=== PATIENT | male | born 1995 | race Caucasian/White ===

== ENCOUNTER 2023-05-03 17:19 | Emergency (ER) | payer BC, SELFPAY ==
--- OUTSIDE RECORDS SUMMARY | 2023-05-03 17:23 | XMS REPORT | Continuity of Care Document ---
:1995 Author Organization [facility] t Address [address] [place] [address] [place] [id number] Care Team Providers Name Role Phone Pcp, Patient Does Not Have A Primary Care Physician +[id number] Ramya Rivera MD Attending Clinician Unknown, Attending Attending Clinician Unavailable RAMYA RIVERA Attending Clinician Unavailable Greg Og Attending Clinician Unavailable Doctor Unassigned, [place] Attending Clinician Unavailable Payers Payer Name Policy Type Policy Number Effective Date Expiration Date S ource Problems Condition Condition Condition Status Onset Resolution Last Treating Co mments Source Name Details Category Date Date Treatment Clinician Date No known No known Disease Unive rs active active ity of problems problems [facility] Allergies, Adverse Reactions, Alerts Allergy Allergy Status Severity Reaction(s) Onset Inactive Treating Comm ents Source Name Type Date Date Clinician PENICILL Drug Active Rash 2021-10 Univers INS Class 1-16 ity of 00:00: [place] 00 [facility] Penicill Propensi Active Rash 2021-10 Univer s ins ty to 16 ity of adverse 00:00: [place] reaction 00 [facility] No Known DA Active U SJm Drug -17 Allergie 00:00: s 00 NO KNOWN Drug Active Univers ALLERGIE Class ity of S [facility] Social History Social Habit Start Date Stop Date Quantity Comments Source History of Cigarette Smoker Universi ty of tobacco use [facility] Exposure to 2022-08-12 2022-08-22 Not sure University of SARS-CoV-2 00:00:00 12:32:00 [facility] (event) Branch Tobacco use and 2022-08-22 2022-08-22 Smokeless tobacco Un iversity of exposure 00:00:00 00:00:00 non-user [facility] Sex Assigned At [birth year] Universit y of 00:00:00 00:00:00 [facility] Smoking Status Start Date Stop Date Source Tobacco smoking consumption Univ ersity [facility] unknown Branch Smokes tobacco daily 2022-08-22 00:00:00 Univers ity [facility] Medications Ordered Filled Start Stop Current Ordering Indication Dosage Frequency Signature Comments Components Source Medication Medication Date Date Medication? Clinician (SIG) Name Name No known 2021-10 No No known Unive rs medications 1-16 medication it y of 13:08: s [address] trazodone 2021-10 Yes Take by Unive rs HCl 1-16 mouth. ity of (TRAZODONE 12:53: [place] ORAL) [address] [place] [address] trazodone 2021-10 Yes Take by Unive rs HCl 1-16 mouth. ity of (TRAZODONE 12:53: [place] ORAL) [address] [place] [address] trazodone 2021-10 Yes Take by Unive rs HCl 1-16 mouth. ity of (TRAZODONE 12:53: [place] ORAL) [address] [place] [address] benzonatate 2021-10 Yes [id number] 200mg Take 2 Univers 100 mg 1-16 capsules ity of capsule 00:00: by mouth [place] 00 every 8 Medical (eight) Branch hours as needed for Cough. ondansetron 2021-10 Yes [id number] 4mg Take 1 U nivers 4 mg 1-16 tablet by ity of disintegrat 00:00: mouth [place] ing tablet 00 every 8 Medica l (eight) Branch hours as needed for Nausea and Vomiting (N/V). bromphenira 2021-10 Yes [id number] 10mL Take 10 mL Univers mine-pseudo 1-16 by mouth 4 it y of ephedrine-D 00:00: ([place] (BROMFED 00 times Medical DM) 2-30-10 daily as Bran ch mg/5 mL needed for syrup Congestion /Allergies . benzonatate 2021-10 Yes [id number] 200mg Take 2 Univers 100 mg 1-16 capsules ity of capsule 00:00: by mouth [place] 00 every 8 Medical (eight) Branch hours as needed for Cough. ondansetron 2021-10 Yes [id number] 4mg Take 1 U nivers 4 mg 1-16 tablet by ity of disintegrat 00:00: mouth [place] ing tablet 00 every 8 Medica l (eight) Branch hours as needed for Nausea and Vomiting (N/V). bromphenira 2021-10 Yes [id number] 10mL Take 10 mL Univers mine-pseudo 1-16 by mouth 4 it y of ephedrine-D 00:00: ([place] (BROMFED 00 times Medical DM) 2-30-10 daily as Bran ch mg/5 mL needed for syrup Congestion /Allergies . benzonatate 2021-10 Yes [id number] 200mg Take 2 Univers 100 mg 1-16 capsules ity of capsule 00:00: by mouth [place] 00 every 8 Medical (eight) Branch hours as needed for Cough. ondansetron 2021-10 Yes [id number] 4mg Take 1 U nivers 4 mg 1-16 tablet by ity of disintegrat 00:00: mouth [place] ing tablet 00 every 8 Medica l (eight) Branch hours as needed for Nausea and Vomiting (N/V). bromphenira 2021-10 Yes [id number] 10mL Take 10 mL Univers mine-pseudo 1-16 by mouth 4 it y of ephedrine-D 00:00: (four[place] (BROMFED 00 times Medical DM) 2-30-10 daily as Bran ch mg/5 mL needed for syrup Congestion /Allergies . oseltamivir 2021-10- No [id number] 75mg Take 1 Univers 75 mg 1-16 11-22 capsule by ity of capsule 00:00: 05:59 mouth in [place] 00 :00 the Medical morning Branch and 1 capsule in the evening. Do all this for 5 days. oseltamivir 2021-10- No [id number] 75mg Take 1 Univers 75 mg 1-16 11-22 capsule by ity of capsule 00:00: 05:59 mouth in [place] 00 :00 the Medical morning Branch and 1 capsule in the evening. Do all this for 5 days. oseltamivir 2021-10- No [id number] 75mg Take 1 Univers 75 mg 10-22 capsule by ity of capsule 00:00: 05:59 mouth in [place] 00 :00 the [facility] Branch and 1 capsule in the evening. Do all this for 5 days. Vital Signs Vital Name Observation Time Observation Value Comments Source Systolic blood 2022-08-22 18:56:00 144 [facility]Hg[facility] Diastolic blood 2022-08-22 18:56:00 85 mm[Hg] [facility] Heart rate 2022-08-22 18:54:00 108 /min [facility] Body temperature 2022-08-22 18:54:00 37.78 Stacie [facility] Respiratory rate 2022-08-22 18:54:00 18 /min [facility] Body height 2022-08-22 18:54:00 180.3 cm [facility] Body weight 2022-08-22 18:54:00 86.274 kg [facility] BMI 2022-08-22 18:54:00 26.53 kg/m2 [facility] Oxygen saturation in 2022-08-22 18:54:00 97 /min [facility] Arterial blood by [facility] Pulse oximetry [place] Procedures Procedure Date / Time Performing Clinician Source Performed POCT MOLECULAR FLU 2022-08-22 18:59:00 Unknown, Attending [facility] POCT MOLECULAR STREP 2022-08-22 18:56:00 Unknown, Attending [facility] PATIENT FINANCIAL Doctor Unassigned, [facility] RESPONSIBILITY - ALL [place] [facility] FORMS Encounters Start End Encounter Admission Attending Care Care Encounter Source Date/Time Date/Time Type Type Clinicians Facility Department ID 2022-08-22 2022-08-22 Urgent Ramya Rivera [facility] [id number] Univers 12:20:00 13:09:18 Care Unknown, Attending [facility] [id number] itkourtney [facility] [id number] Fabricio as KYLE?BLEA [id number] [facility] [address] MEDICAL OFFICE BUILDING 2022-08-22 2022-08-22 Outpatient R BARRETT [facility] [id number] Univers 12:20:00 13:09:18 RAMYA ity of [facility] 2022-08-22 2022-08-22 [facility] [id number] Univers 00:00:00 00:00:00 (Out) Ramya HEALTH [id number] it y of [facility] [id number] Fabricio as KYLE?BLEA [id number] [address] OFFICE [facility] 2022-08-22 2022-08-22 [facility]phone [facility] [id number] Univers 00:00:00 00:00:00 Ramya HEALTH [id number] it y of [place] [id number] Fabricio as KYLE?BLEA [id number] [address] 2022-03-23 2022-03-23 Emergency Emergency Earle, Greg [facility] JM [id number] [facility] 21:20:00 21:20:00 35 2022-03-23 2022-03-23 Emergency [facility] [id number] [facility] 21:20:00 21:20:00 35 Orders Doctor TONE [id number] Univers 00:00:00 00:00:00 Only Unassigned, JOANIE [id number] ity of [place] [facility] [id number] Fabricio as [id number] [address] Results Test Description Test Time Test Comments Results Result Comments Source POCT MOLECULAR STREP 2022-08-22 19:04:36 Test Item Value Reference Range Interpretation Comme nts POCT Molecular Strep (test code = 55886-5) Negative Negative Lab Interpretation (test code = 12034-4) [facility] [id number] 19:03:49 Test Item Value Reference Range Interpretation Comments POCT Molecular FluA (test code = Positive Negative A 54661-3) Lab Interpretation (test code = Abnormal 50016-0) [facility] [id number] 23:00:00 Test Item Value Reference Range Interpretation Comments Color,Urine (test code = UCOL) Yellow Yellow Clarity,Urine (test code = Clear Clear UCLAR) Ph, Urine (test code = UPH) 6.0 5.0-9.0 N Specific [place],Urine (test 1.015 1.005-1.030 N code = USG) Blood,Urine (test code = UBLD) Trace mg/dL Negative A Protein,Urine (test code = Negative mg/dL Negative UPRO) Glucose,Urine (UA) (test code Negative mg/dL Negative = UGLU) Ketones,Urine (test code = Trace mg/dL Negative A UKET) Nitrate,Urine (test code = Negative Negative UNIT) Bilirubin,Urine (test code = Negative mg/dL Negative UBIL) Urobilinogen,Urine (test code 1.0 E.U./dL Normal = UURO) Leukocyte Esterase,Urine (test Negative mg/dL Negative code = ULEU) Complete Blood Count Auto [id number] 23:00:00 Test Item Value Reference Range Interpretation Comments White Blood Count (test code = 10.8 x10 3/uL 4.4-10.5 H WBCT) Red Blood Count (test code = 5.31 x10 6/uL 4.10-5.70 N RBC) Hemoglobin (test code = HGBT) 17.0 g/dL 13.4-17.4 N Hematocrit (test code = HCTT) 50.8 % 38.7-52.0 N Mean Corpuscular Volume (test 95.70 fL 80.00-100.00 N code = MCV) Mean Corpuscular Hemoglobin 32.0 pg 27.0-32.5 N (test code = MCH) Mean Corpuscular HGB Conc 33.50 g/dL 32.00-37.50 N (test code = MCHC) RDW Coefficient of Variation 12.7 % 11.5-14.5 N (test code = RDWCV) Platelet Count (test code = 330.0 x10 3/uL 140.0-440.0 N PLTT) Mean Platelet Volume (test 9.7 fL code = MPV) Immature Granulocytes % (Auto) 0.3 % 0.0-5.0 N (test code = IMMGRAN%) Neutrophils % (Auto) (test 58.0 % 36.0-70.0 N code = NE%) Lymphocytes % (Auto) (test 34.3 % 12.0-44.0 N code = LY%) Monocytes % (Auto) (test code 5.3 % 0.0-11.0 N = MO%) Eosinophils % (Auto) (test 1.5 % 0.0-7.0 N code = EO%) Basophils % (Auto) (test code 0.6 % 0.0-2.0 N = BA%) Immature Granulocytes # (Auto) 0.03 x10 3/uL (test code = IMMGRAN#) Neutrophils # (Auto) (test 6.3 x10 3/uL 1.6-7.4 N code = NE#) Lymphocytes # (Auto) (test 3.72 x10 3/uL 0.50-4.60 N code = LY#) Monocytes # (Auto) (test code 0.57 x10 3/uL 0.00-1.20 N = MO#) Eosinophils # (Auto) (test 0.16 x10 3/uL 0.00-0.74 N code = EO#) Basophils # (Auto) (test code 0.06 x10 3/uL 0.00-0.21 N = BA#) nRBC Abs (test code = NRBCA) 0 nRBC Pct (test code = NRBCP) 0 % Comprehensive Metabolic [id number] 23:00:00 Test Item Value Reference Range Interpretation Comments SODIUM (test code = NA) 141.0 mmol/L 136.0-145.0 N Potassium,K (test code = K) 4.4 mmol/L 3.0-5.1 N Chloride (test code = CL) 103 mmol/L 98-107 N Carbon Dioxide (test code = 29 mmol/L 20-31 N CO2) Anion Gap (test code = GAP) 9 mmol/L 5-15 N Blood Urea Nitrogen (test code 8 mg/dL 9-23 L = BUN) Creatinine (test code = CREATT) 1.13 mg/dL 0.55-1.02 H Creatinine Clr Calc Pharmacy 107.78 mL/min (test code = CRCLPHA) Estimated GFR ( Maryanne > 60 mL/min/1.73m2 (test code = EGFRAA) Estimated GFR (Non Afr Maryanne > 60 mL/min/1.73m2 (test code = EGFRNAA) BUN/Creatinine Ratio (test code 7 ratio 10-20 L = BCRATIO) Glucose (test code = GLU) 86 mg/dL 74-106 N Osmolality,Calculated (test 288.8 code = OSMOC) Calcium (test code = CA) 9.1 mg/dL 8.3-10.6 N Bilirubin,Total (test code = 0.3 mg/dL 0.2-1.1 N BILIT) Aspartate Amino Transferase 30 U/L 0-34 N (test code = AST) Alanine Aminotransferase (test 25 U/L 10-49 N code = ALT) Total Protein (test code = TP) 7.6 g/dL 5.7-8.2 N Albumin Level (test code = ALB) 4.9 g/dL 3.2-4.8 H Globulin (test code = GLOB) 2.7 mg/dL 2.3-3.5 N Albumin/Globulin Ratio (test 1.8 ratio 0.8-2.0 N code = AGRATIO) Alkaline Phosphatase (test code 62 U/L 46-116 N = ALP) Ethanol [id number] 23:00:00 Test Item Value Reference Range Interpretation Comments Ethanol (test code 145 mg/dL The pharm acological = ETOH) response to blo od alcohol levels mayvary from individual to i ndividual. The fatal gilbert ntrationhas been reported t o be >400mg/dL.
[2023-05-03 18:16] LABS: Specific Gravity 1.006 (1.005-1.030); Urine Bilirubin NEGATIVE (Negative); Urine Blood Negative (Negative); Urine Clarity Clear (Clear); Urine Color Colorless (Yellow); Urine Glucose NEGATIVE (Negative); Urine Protein NEGATIVE (Negative); Urine Urobilinogen Normal (Normal)
[2023-05-03 18:18] LABS: Absolute Lymphocytes (CBC) 3.1 K/uL (0.7-4.9); Hematocrit 47.4 % (39.6-49.0); Lymphocytes % 35.9 % (15.3-44.8); MCV 91.8 fL (80-100); MPV 8.2 fL (7.6-11.3); RBC Red Blood Cell Count 5.17 M/uL (4.33-5.43)
[2023-05-03 18:26] LABS: Barbiturates NEGATIVE (NEGATIVE); Benzodiazepines NEGATIVE (NEGATIVE); Cocaine NEGATIVE (NEGATIVE); METHAMPHETAM NEGATIVE (NEGATIVE); Methadone NEGATIVE (NEGATIVE); Opiates NEGATIVE (NEGATIVE); Phencyclidine NEGATIVE (NEGATIVE); THC Cannibis NEGATIVE (NEGATIVE)
[2023-05-03 18:35] LABS: ALT/SGPT 30 U/L (16-61); AST/SGOT 21 U/L (15-37); Alkaline Phosphatase 56 U/L (45-117); BUN Blood Urea Nitrogen 8 mg/dL (7-18); Bicarbonate 26 mEq/L (21-32); Bilirubin Direct < 0.1 mg/dL (0-0.2); Bilirubin Indirect, Calculated ND mg/dL (0.2-0.8); Bilirubin Total 0.3 mg/dL (0.2-1.0); Glomerular Filtration Rate 97 ml/min (=/>90); Glucose Level 99 mg/dL (74-106); Potassium 4.1 mEq/L (3.5-5.1); Protein, Total 8.2 g/dL (6.4-8.2); Sodium Level 142 mEq/L (136-145)
[2023-05-03] MEDS ORDERED: TDAP (DIPHTH,PERTUSS(ACELL),TET VAC) 0.5 ML VIAL IMVAC ONE (19:26)
[2023-05-03] MEDS ORDERED: NA CHLORIDE 0.9% 1,000 ML ONE (19:26)
--- NOTE | 2023-05-03 20:04 | EDPHYS ---
Physician Documentation [facility] Name: Rolan Jeter Jr Age: 28 yrs Sex: Male : 1995 Arrival Date: 05/03/2023 Time: 17:19 Bed 17 Private MD: ED Physician Hugo Ceballos HPI: 05/03 18:00 This 28 yrs old Male presents to ER via Law Enforcement with complaints of Cutting of cp Wrist, Alcohol Intoxication. 18:00 Patient is a 28-year-old male who is brought in accompanied by law enforcement under cp senior living with concern for suicidal ideations. Patient denies any current suicidal ideations but admits to consuming alcohol today and cutting his wrists in an attempt to just feel pain. Patient admits she has cut in the past and that this is in an effort to feel pain and not in an attempt of suicide. Patient reports he lives at home with his mother for the past 2 years since being [facility] and is unemployed but denies any thoughts of suicide. Historical: - Allergies: 17:38 PENICILLINS; eh3 - Home Meds: 17:38 Trazodone Oral [Active]; Seroquel Oral [Active]; Lexapro Oral [Active]; eh3 - PMHx: 17:38 Depressive disorder; eh3 - Immunization history:: Adult Immunizations unknown. - Social history:: Smoking status: unknown Patient uses alcohol. ROS: 18:05 Eyes: Negative for injury, pain, redness, and discharge. cp 18:05 Constitutional: Negative for body aches, chills, fever, poor PO intake. 18:05 Cardiovascular: Negative for chest pain, palpitations. 18:05 Respiratory: Negative for cough, shortness of breath, wheezing. 18:05 Abdomen/GI: Negative for abdominal pain, nausea, vomiting, and diarrhea. 18:05 Skin: Positive for laceration(s), of the volar side of right forearm and volar side of left forearm. 18:05 Neuro: Negative for altered mental status, dizziness, headache, numbness. 18:05 Psych: Negative for auditory hallucinations, visual hallucinations, homicidal ideation, suicide gesture, suicidal ideation. 18:05 All other systems are negative. Exam: 18:10 Constitutional: The patient appears in no acute distress, alert, awake, non-toxic, well cp developed, well nourished, smells of alcohol. 18:10 Head/Face: Normocephalic, atraumatic. cp 18:10 Eyes: Periorbital structures: appear normal, Conjunctiva: normal, no exudate, no injection, Sclera: no appreciated abnormality, Lids and lashes: appear normal, bilaterally. 18:10 ENT: External ear(s): are unremarkable, Nose: is normal, Mouth: Lips: moist, Oral mucosa: moist, Posterior pharynx: is normal, airway is patent, no erythema, no exudate. 18:10 Chest/axilla: Inspection: normal. 18:10 Cardiovascular: Rate: normal, Rhythm: regular. 18:10 Respiratory: the patient does not display signs of respiratory distress, Respirations: normal, no use of accessory muscles, no retractions, labored breathing, is not present, Breath sounds: are clear throughout, no decreased breath sounds, no stridor, no wheezing. 18:10 Abdomen/GI: Inspection: abdomen appears normal, Palpation: abdomen is soft and non-tender, in all quadrants. 18:10 Back: pain, is absent, ROM is normal. 18:10 Skin: injury, laceration(s), Multiple, superficial noted to palmar side of left and right forearms. Minimal bleeding noted. 18:10 Neuro: Orientation: to person, place \T\ time. Mentation: is normal, Motor: moves all fours, strength is normal. 05/04 19:00 ECG was reviewed by the Attending Physician. cp Vital Signs: 05/03 17:36 BP 153 / 77; Pulse 76; Resp 20; Temp 98.4(O); Pulse Ox 99% on R/A; eh3 05/04 01:25 BP 140 / 70; Pulse 65; Resp 16 S; Pulse Ox 96% on R/A; ha1 08:00 BP 135 / 88; Pulse 75; Resp 15; Temp 97.4; Pulse Ox 96% on R/A; Pain 0/10; ll1 11:57 BP 129 / 76; Pulse 69; Resp 18; Pulse Ox 100% on R/A; Pain 0/10; ld1 08:00 Pain Scale: Adult ll1 11:57 Pain Scale: Adult ld1 MDM: 05/03 17:29 Patient medically screened. [facility] 19:35 Data reviewed: vital signs, nurses notes, lab test result(s), EKG. 19:35 ED course: Plan: We will continue to monitor patient in the emergency department and cp allowed to sober up. We will redraw alcohol level and once under 100, consult Subha Ledesma for evaluation and probable discharge from the ED. At this time patient continues to deny any suicidal ideations but remains under senior living. 05/04 03:00 Transition of care: After a detail discussion of the patient's case, care is cp transferred to Hadley Gardiner MD. 07:27 Transition of care: Care assumed from Hadley Gardiner MD. ms3 11:08 Differential diagnosis: depression, psychosis secondary to non-compliance, Alcohol ms3 intoxication. 11:08 ED course: Patient seen by Subha Ledesma and discharge plan created. Patient denies ms3 homicidal ideation, suicidal ideation, hallucinations at this time. On reevaluation patient is calm, cooperative, alert and orient x4, no apparent distress, nontoxic-appearing, ambulatory in emergency primary, speaking full sentences. Patient to follow-up with psychiatry in 2 to 3 days. Patient understands and agrees with plan. All questions were answered. Return precautions discussed include hallucinations, homicidal ideation, suicidal ideation, thoughts of self-harm, worsening symptoms, or any other concerns. 05/03 17:35 Order name: Acetaminophen; Complete Time: 19:10 05/03 17:35 Order name: Basic Metabolic Panel; Complete Time: 19:10 05/03 19:10 Interpretation: Normal except: CL 110. 05/03 17:35 Order name: CBC with Diff; Complete Time: 19:10 05/03 17:35 Order name: ETOH Level; Complete Time: 19:10 05/03 19:10 Interpretation: Abnormal: ETOH 203. 05/03 17:35 Order name: Hepatic Function; Complete Time: 19:10 05/03 17:35 Order name: PT-INR; Complete Time: 19:10 05/03 17:35 Order name: Ptt, Activated; Complete Time: 19:10 05/03 17:35 Order name: Salicylate; Complete Time: 19:10 05/03 17:35 Order name: Urinalysis w/ reflexes; Complete Time: 19:10 05/03 17:35 Order name: Urine Drug Screen; Complete Time: 19:10 05/04 06:08 Order name: ETOH Level; Complete Time: 07:14 rt 05/03 17:35 Order name: EKG; Complete Time: 17:36 cp 05/04 02:10 Order name: Diet Finger Food; Complete Time: 02:11 vc1 05/04 07:33 Order name: Diet Finger Food; Complete Time: 07:34 ll1 05/04 09:32 Order name: Diet Finger Food; Complete Time: 09:32 ld1 05/03 17:35 Order name: EKG - Nurse/Tech; Complete Time: 19:30 cp 05/03 17:35 Order name: IV Saline Lock; Complete Time: 18:31 cp 05/03 17:35 Order name: Labs collected and sent; Complete Time: 18:31 cp 05/03 17:35 Order name: Suicide Precautions; Complete Time: 18:31 cp 05/03 17:35 Order name: Suicide Screening ([place]); Complete Time: 18:31 cp 05/03 18:09 Order name: Wound Care: clean and dress wounds; Complete Time: 07:42 cp EC:00 Rate is 84 beats/min. Rhythm is regular. IA interval is normal. QRS interval is normal. cp QT interval is normal. T waves are Inverted in lead aVR. Interpreted by me. Reviewed by me. Administered Medications: 05/03 19:29 Drug: NS 0.9% IV 1000 ml Route: IV; Rate: 1 bolus; Site: right antecubital; 3 19:30 Drug: Tetanus-Diphtheria Toxoid IM Adult 0.5 ml {Estimating Engineer: [employer] 3 Exp: 10/24/2023. Lot #: [id number]. } Route: IM; Site: right deltoid; 20:00 Follow up: Response: (VIS) Vaccine information sheet provided today. Questions and/or 3 concerns addressed. VIS edition date: May 12, 2021.; No adverse reaction Disposition Summary: 05/04/23 11:07 Discharge Ordered Location: Home ms3 Condition: Stable(05/04/23 11:07) ms3 Diagnosis - Alcohol abuse with intoxication, unspecified ms3 - Suicidal ideations(05/04/23 11:07) ms3 Followup: ms3 - With: Carlos Cummins MD - When: 2 - 3 days - Reason: Recheck today's complaints Discharge Instructions: - Discharge Summary Sheet ms3 - Alcohol Intoxication ms3 - Suicidal Feelings: How to Help Yourself ms3 Forms: - Medication Reconciliation Form ms3 - Thank You Letter ms3 - Antibiotic Education ms3 - Prescription Opioid Use ms3 - Patient Portal Instructions ms3 Addendum: 05/05/2023 13:40 Co-signature as Attending Physician, Hugo Ceballos DO. m s3 Signatures: Dispatcher [employer] EDSujit Bernal MD MD cha Page, Corey PA PA cp Hugo Ceballos DO DO ms3 Coty Palacio RN RN eh3 Hadley Gardiner MD MD rt Corrections: (The following items were deleted from the chart) 05/04 11:06 05/03 20:02 doctor cp ms3 05/04 11:06 05/03 20:02 Psych Facility cp ms3 05/04 11:06 05/03 20:02 Higher level of care cp ms3 05/04 11:06 05/03 20:02 Stable cp ms3 05/04 11:06 05/03 20:02 new cp ms3 05/04 11:06 05/03 20:02 have improved cp ms3 05/04 11:06 05/03 20:02 Suicidal ideations cp ms3 05/05 03:28 03:26 This 28 yrs old Male presents to ER via Law Enforcement with complaints of cp Cutting of Wrist, Alcohol Intoxication. cp 05/04 18:05 Constitutional: Negative for body aches, chills, fever, poor PO intake, cp cp 05/05 03:05/04 18:05 Cardiovascular: Negative for chest pain, palpitations, cp cp 05/05 03:05/04 18:05 Respiratory: Negative for cough, shortness of breath, wheezing, cp cp 05/05 03:05/04 18:05 Abdomen/GI: Negative for abdominal pain, nausea, vomiting, and diarrhea, cp cp 05/05 03:05/04 18:05 Eyes: Negative for injury, pain, redness, and discharge, cp cp 05/05 03:05/04 18:05 Skin: Positive for laceration(s), of the volar side of right forearm and cp volar side of left forearm, cp 05/05 03:05/04 18:05 Neuro: Negative for altered mental status, dizziness, headache, numbness, cpcp 05/05 03:32 05/04 18:05 Psych: Negative for auditory hallucinations, visual hallucinations, cp homicidal ideation, suicide gesture, suicidal ideation, cp 05/05 03:05/04 18:05 All other systems are negative, cp cp
--- NOTE | 2023-05-03 20:04 | ER ---
Nurse's Notes [facility] Name: Rolan Jeter Jr Age: 28 yrs Sex: Male : 1995 Arrival Date: 05/03/2023 Time: 17:19 Bed 17 Private MD: Diagnosis: Alcohol abuse with intoxication, unspecified;Suicidal ideations Presentation: 05/03 17:36 Chief complaint: [facility] reports that pt has been drinking eh3 alcohol, cutting wrists, and pt states he is feeling suicidal. Ebola Screen: No symptoms or risks identified at this time. 17:36 Method Of Arrival: Law Enforcement: [employer] [facility] SO eh3 17:36 Acuity: RONALDO 2 jl7 17:36 Coronavirus screen: Vaccine status: Patient reports being unvaccinated. Initial Sepsis eh3 Screen: Does the patient meet any 2 criteria? No. Patient's initial sepsis screen is negative. Does the patient have a suspected source of infection? No. Patient's initial sepsis screen is negative. Risk Assessment: Do you want to hurt yourself or someone else? Patient reports desire/thoughts of hurting themselves or someone else. Provider notified. Onset of symptoms was May 03, 2023. Triage Assessment: 17:38 General: Appears in no apparent distress. comfortable, Behavior is calm, cooperative, eh3 Smells of alcohol. Pain: Denies pain. Neuro: Level of Consciousness is awake, alert, obeys commands, Oriented to person, place, time, situation. Cardiovascular: Capillary refill < 3 seconds Patient's skin is warm and dry. Respiratory: Airway is patent Respiratory effort is even, unlabored, Respiratory pattern is regular, symmetrical. GI: Abdomen is round non-distended. Derm: Skin is pink, warm \\T\\ dry. Wound noted right arm and left arm Wound is superficial lacerations. Musculoskeletal: Circulation, motion, and sensation intact. Historical: - Allergies: 17:38 PENICILLINS; eh3 - Home Meds: 17:38 Trazodone Oral [Active]; Seroquel Oral [Active]; Lexapro Oral [Active]; eh3 - PMHx: 17:38 Depressive disorder; eh3 - Immunization history:: Adult Immunizations unknown. - Social history:: Smoking status: unknown Patient uses alcohol. Screenin:36 [facility] ED Fall Risk Assessment (Adult) Score/Fall Risk Level 0 - 2 = Low Risk. Abuse eh3 screen: Denies threats or abuse. Denies injuries from another. Nutritional screening: No deficits noted. Tuberculosis screening: No symptoms or risk factors identified. Assessment: 09:45 General: Appears comfortable, Behavior is calm, cooperative. Pain: Denies pain. Neuro: ha1 Level of Consciousness is awake, alert, obeys commands, Oriented to person, place, time, situation, Reports suicidal ideations . 17:36 Reassessment: No changes from previously documented assessment. See triage assessment. eh3 18:30 Reassessment: Patient appears in no apparent distress at this time. Patient and/or eh3 family updated on plan of care and expected duration. Pain level reassessed. Patient is alert, oriented x 3, equal unlabored respirations, skin warm/dry/pink. Pt sitting on side of bed eating dinner. 19:30 Reassessment: Pt in bed with eyes closed, equal unlabored respirations,skin eh3 warm/dry/pink. 20:30 Reassessment: Pt in bed with eyes closed, equal unlabored respirations,skin eh3 warm/dry/pink. 21:30 Reassessment: Pt in bed with eyes closed, equal unlabored respirations,skin eh3 warm/dry/pink. 21:45 Cardiovascular: Patient's skin is warm and dry. Respiratory: Airway is patent ha1 Respiratory effort is even, unlabored, Respiratory pattern is regular, symmetrical. GI: Abdomen is flat, non-distended. : No signs and/or symptoms were reported regarding the genitourinary system. Derm: Skin superficial cuts on the forearms. Skin is normal. Musculoskeletal: Circulation, motion, and sensation intact. Range of motion: intact in all extremities. 22:30 Reassessment: eyes closed. Respiratory: Airway is patent Respiratory effort is even, ha1 unlabored, Respiratory pattern is regular, symmetrical. 23:30 Reassessment: eyes closed. Respiratory: Airway is patent Respiratory effort is even, ha1 unlabored, Respiratory pattern is regular, symmetrical. 05/04 01:25 Reassessment: Patient and/or family updated on plan of care and expected duration. Pain ha1 level reassessed. Patient is alert, oriented x 3, equal unlabored respirations, skin warm/dry/pink. 02:30 Reassessment: eyes closed. Respiratory: Airway is patent Respiratory effort is even, ha1 unlabored, Respiratory pattern is regular, symmetrical. 03:30 Reassessment: eyes closed. Respiratory: Airway is patent Respiratory effort is even, ha1 unlabored, Respiratory pattern is regular, symmetrical. 04:30 Reassessment: eyes closed. Respiratory: Airway is patent Respiratory effort is even, ha1 unlabored, Respiratory pattern is regular, symmetrical. 05:30 Reassessment: eyes closed. Respiratory: Airway is patent Respiratory effort is even, ha1 unlabored, Respiratory pattern is regular, symmetrical. 06:30 Reassessment: Patient and/or family updated on plan of care and expected duration. Pain ha1 level reassessed. Patient is alert, oriented x 3, equal unlabored respirations, skin warm/dry/pink. 07:04 Reassessment: No changes from previously documented assessment. Report received from ll1 production shift supervisor RN. 08:00 General: Appears in no apparent distress. Behavior is calm, cooperative, appropriate [facility] for age. General: feels a lot better now. No SI or HI thoughts. Dr. Ceballos informed. Pain: Denies pain. Derm: superficial cuts B arms. 09:13 Reassessment: Received report from THIERRY Fiore. Pt denies SI at this time. Denies ld1 pain/concerns. SI precautions in place. Paper charting complete. 09:16 Reassessment: [facility] at bedside. ld1 Psych: 05/03 17:36 [facility] Suicide Severity Screening: In the past month, have you wished you were eh3 or wished you could go to sleep and not wake up? Patient responds "yes." "In the past month, have you actually had any thoughts of killing yourself?" Patient responds "yes." Based off the client's response additional [facility] suicide severity screening questions to be further documented on paper forms. "In your lifetime, have you ever done anything, started to do anything, or prepared to do anything to end your life?" Patient responds "yes.". Subjective: Patient's mood is elevated, Delusions are denied, Hallucinations are denied Having thoughts of suicide. Denies suicidal plan. Objective: Patient is cooperative, Speech is pressured, Affect is inappropriate, Patient has mutilated themselves by superficial lacerations to bilateral forearms. Interventions: Removed personal items and placed in bag. Patient placed in hospital gown. Searched person for dangerous items. Urine collected and sent for urine drug test. Belonging list filled out. Patient reassessed during use of restraints. Patient is physically safe. Patient's cardiac status is stable. Patient's respirations are even and unlabored. Patient has good circulation in all extremities as indicated by capillary refill < 3 seconds. Patient's ROM assessed and is intact. Patient nutrition and hydration needs will continue to be monitored and addressed. Patient hygiene and elimination needs met. Patient assessed for signs of distress. Patient remains reasonably comfortable at this time. Assisted patient in de-escalation of behavior by removing stimuli causing behavior where possible. Safety Checks: Personal items have been removed. Door is open. No visitors are present at this time. Patient uses of beer, Last use was 2 hours ago. Commitment: Patient will be a voluntary commitment. Vital Signs: 17:36 BP 153 / 77; Pulse 76; Resp 20; Temp 98.4(O); Pulse Ox 99% on R/A; eh3 05/04 01:25 BP 140 / 70; Pulse 65; Resp 16 S; Pulse Ox 96% on R/A; ha1 08:00 BP 135 / 88; Pulse 75; Resp 15; Temp 97.4; Pulse Ox 96% on R/A; Pain 0/10; ll1 11:57 BP 129 / 76; Pulse 69; Resp 18; Pulse Ox 100% on R/A; Pain 0/10; ld1 08:00 Pain Scale: Adult ll1 11:57 Pain Scale: Adult ld1 ED Course: 05/03 17:28 Patient arrived in ED. eb 17:29 Sujit Medina PA is PHCP. cp 17:29 Sujit Hazel MD is Attending Physician. cp 17:36 Coty Palacio, THIERRY is Primary Nurse. eh3 17:36 Safety Checks: Personal items have been removed. The door is open or patient has been eh3 placed in a hallway bed/chair. There are no family/friend visitors at this time Sitter present at this time. 17:36 Patient has correct armband on for positive identification. Bed in low position. eh3 Valuables inventory done. See valuables checklist. Provided Education on: N/A. Sitter at bedside. 17:36 Inserted saline lock: 20 gauge in right antecubital area, using aseptic technique. eh3 Blood collected. 17:38 Arm band placed on. eh3 18:14 Triage completed. jl7 21:30 Report given to THIERRY Guardado and THIERRY Calle. eh3 21:30 Report received from THIERRY Ansari. ha1 05/04 07:26 Attending Physician role handed off by Sujit Hazel MD ms3 07:26 Hugo Ceballos DO is Attending Physician. ms3 07:50 called the [facility] Crisis line/ the screener has been paged. eb 11:06 Carlos Cummins MD is Referral Physician. ms3 11:56 No provider procedures requiring assistance completed. IV discontinued, intact, ld1 bleeding controlled, No redness/swelling at site. Administered Medications: 05/03 19:29 Drug: NS 0.9% IV 1000 ml Route: IV; Rate: 1 bolus; Site: right antecubital; 3 19:30 Drug: Tetanus-Diphtheria Toxoid IM Adult 0.5 ml {Fur Puller: Whi ([employer]). [facility] Exp: 10/24/2023. Lot #: [id number]. } Route: IM; Site: right deltoid; 20:00 Follow up: Response: (VIS) Vaccine information sheet provided today. Questions and/or [facility] concerns addressed. VIS edition date: May 12, 2021.; No adverse reaction Medication: 05/04 11:57 VIS not applicable for this client. ld1 Outcome: 05/03 20:02 ER care complete, transfer ordered by . 05/04 11:07 Discharge ordered by . ms3 11:57 Discharged to home ambulatory. ld1 11:57 Condition: improved 11:57 Discharge instructions given to patient, Instructed on discharge instructions, follow up and referral plans. Demonstrated understanding of instructions, follow-up care. 11:57 Patient left the ED. ld1 Signatures: Sujit Medina PA PA cp Leal, Jahala RN RN jl7 Bella Mathew Lynsay RN RN 1 Hugo Ceballos DO DO ms3 Miguelina Ceballos RN RN ld1 Coty Palacio RN RN eh3 Alva Sahni RN RN [facility]
[2023-05-04 12:18] VITALS: TEMP 97.4
[2023-05-04 12:20] VITALS: BP 129/76; O2SAT 100
--- NOTE | 2023-05-05 13:15 | EKG ---
Test Date: 2023-05-03 Test Time: 18:52:05 Supervisor [place]: LUIS ANTONIO MEASUREMENT RESULTS: Intervals: Rate: 84 CT: 146 QRSD: 90 QT: 354 QTc: 418 [place]: P: 65 CT: 146 QRS: 73 T: 42 INTERPRETIVE STATEMENTS: Normal sinus rhythm Normal ECG Compared to ECG 07/28/2017 23:11:42 Sinus arrhythmia no longer present Electronically Signed On 05-05-23 13:12:06 CDT by Alexis Guevara
== END 2023-05-04 11:57 | disposition home or self-care (01) ==
LOC: ER 17:19
DX: F10.129 Alcohol abuse with intoxication, unspecified (principal); R45.851 Suicidal ideations; F32.A Depression, unspecified; Z23 Encounter for immunization; Z88.0 Allergy status to penicillin
CPT/HCPCS: 93005; 85025; 80048; 36415; 85610; 80076; 85730; 81003; 80307; 90471; 99285; 80143; 80179; 82077 ×2; J7030